=== PATIENT | male | born 1985 | race Caucasian/White ===

== ENCOUNTER 2020-01-09 19:09 | Emergency (ER) | payer OTHER, SELFPAY ==
[2020-01-09 19:23] VITALS: BP 167/92; PULSE 107; RESP 18; TEMP 36.7; O2SAT 97
[2020-01-09] MEDS: SODIUM CHLORIDE 0.9% IV 1,000 ML 999 ML IV CONT (19:40)
[2020-01-09] MEDS: ONDANSETRON INJ 4 MG/2 ML VIAL IV PUSH (19:42)
[2020-01-09 19:44] LABS: Hemoglobin 16.1 g/dL (14.0-18.0); Mean Corpuscular HGB Conc 33.5 g/dL (32.0-36.0); Mean Corpuscular Hemoglobin 31.5 pg (27.0-31.0); Mean Corpuscular Volume 93.9 fL (78.0-102.0); Mean Platelet Volume 9.7 fl (8.7-11.0); Platelet Count Result 294 K/mm3 (150-420); Red Blood Count 5.11 M/mm3 (4.70-6.10); Red Cell Distribution Width 12.9 % (11.6-14.4); White Blood Count 10.8 K/mm3 (4.8-10.8)
[2020-01-09 19:59] LABS: Alanine Aminotransferase 38 U/L (16-63); Alkaline Phosphatase 121 U/L (46-116); Anion Gap 10 mmol/L (8-16); Aspartate Amino Transferase 24 U/L (15-37); Bilirubin,Total 0.6 mg/dL (0.00-1.00); Blood Urea Nitrogen 13 mg/dL (7-18); Carbon Dioxide 28 mmol/L (21-32); Chloride 103 mmol/L (98-108); Estimated CRCL calculation 76 ml/min; Estimated Glomerular Filt Rate > 60; Glucose 107 mg/dL (70-99); Lipase 50 U/L (73-393); Osmolality Calculated 292 mOsm/kg (285-295); Potassium 3.6 mmol/L (3.5-5.1); Sodium 141 mmol/L (136-145)
--- NOTE | 2020-01-09 20:31 | ED.NAVMDI ---
HPI - Nausea/Vomiting/Diarrhea General Chief complaint: Nausea/Vomiting/Diarrhea Stated complaint: cant eat, throwing up, nausea Source: patient Mode of arrival: ambulatory History of Present Illness HPI Narrative: This is a 34-year-old male has a history of marijuana use, tobacco history and drinks approximately a pt of alcohol daily, presents with nausea and episodes of vomiting after he use marijuana earlier today. Currently there is no shortness of breath, no chest pain no fever or chills no diarrhea constipation no dysuria. MD elicited complaint: nausea and vomiting Pertinent past history: anorexia Onset (ago): hour(s) Description of vomiting: food contents and watery Associated nausea: Yes Associated abdominal pain: No Location of pain: none Related Data Allergies Allergy/AdvReac Type Severity Reaction Status Date / Time No Known Allergies Allergy Verified 01/09/20 19:31 Review of Systems Review of Systems: All systems reviewed & are unremarkable except as noted in HPI and below PMFSH Past Medical History Medical History Tobacco abuse Social History Social History Gender identity (if verbalized by the patient): Male Exam Const: General: no acute distress HENMT: Head: normal to inspection Eyes: Pupils: Equal, round and reactive pupils present Neck: Neck: normal visual inspection, no lymphadenopathy and no meningeal signs Chest: Chest palpation & inspection: normal inspection of the chest Resp: Effort & Inspection: normal respiratory effort Cardio: Rate: regular rate GI: GI Palp: Yes Soft to palpation Back/Spine/Pelvis: Back: no CVA tenderness Skin: General skin exam: normal color Rashes: no rashes Neuro: General: patient oriented x3 Extrem: General: normal to inspection Psych: Appearance: grossly normal Mental Status: mental status grossly normal Affect: normal affect Course Course Emergency Course: reassessment patient after IV Zofran and IV fluids patient states that he feels much better, and advised to to decrease is a marijuana use or to completely stop because of a relation to hyper emesis. Vital Signs Vital signs: Vital Signs Temperature 36.7 C 01/09/20 19:23 Pulse Rate 107 H 01/09/20 19:23 Respiratory Rate 18 01/09/20 19:23 Blood Pressure 167/92 H 01/09/20 19:23 Pulse Oximetry 97 01/09/20 19:23 Temperature 36.7 C 01/09/20 19:23 Pulse Rate 107 H 01/09/20 19:23 Respiratory Rate 18 01/09/20 19:23 Blood Pressure 167/92 H 01/09/20 19:23 Pulse Oximetry 97 01/09/20 19:23 MDM - Nausea/Vomiting/Diarrhea Lab Data Result diagrams: 01/09/20 19:39 01/09/20 19:39 Labs: Lab Results 01/09/20 01/09/20 Range/Units 19:39 19:39 WBC 10.8 (4.8-10.8) K/mm3 RBC 5.11 (4.70-6.10) M/mm3 Hgb 16.1 (14.0-18.0) g/dL Hct 48.0 (40.0-54.0) % MCV 93.9 (78.0-102.0) fL MCH 31.5 H (27.0-31.0) pg MCHC 33.5 (32.0-36.0) g/dL RDW 12.9 (11.6-14.4) % Plt Count 294 (150-420) K/mm3 MPV 9.7 (8.7-11.0) fl Sodium 141 (136-145) mmol/L Potassium 3.6 (3.5-5.1) mmol/L Chloride 103 (98-108) mmol/L Carbon Dioxide 28 (21-32) mmol/L Anion Gap 10 (8-16) mmol/L BUN 13 (7-18) mg/dL Creatinine 1.16 (0.70-1.30) mg/dL Estim Creat Clear Calc 76 ml/min Estimated GFR > 60 (59 - ) Glucose 107 H (70-99) mg/dL Calculated Osmolality 292 (285-295) mOsm/kg Calcium 9.0 (8.5-10.1) mg/dL Total Bilirubin 0.6 (0.00-1.00) mg/dL AST 24 (15-37) U/L ALT 38 (16-63) U/L Alkaline Phosphatase 121 H (46-116) U/L Total Protein 8.0 (6.4-8.2) g/dL Albumin 4.0 (3.4-5.0) g/dL Lipase 50 L (73-393) U/L Critical Care Time Critical Care Time Critical Care Time: No Discharge Plan Discharge Clinical Impression: Nausea & vomiting Qualifiers: Vomit
[2020-01-09 20:50] VITALS: BP 126/59
== END 2020-01-09 20:50 | disposition home or self-care (01) ==
PROVIDERS: Emergency Provider Emergency Medicine
DX: R11.2 Nausea with vomiting, unspecified (principal)
CPT/HCPCS: 36415; 80053; 83690; 85027; 96361; 96374; 99283; 99284; J2405; J7030

== ENCOUNTER 2020-01-13 07:58 | Emergency (ER) | payer OTHER, SELFPAY ==
[2020-01-13 08:11] VITALS: BP 139/81; PULSE 92; RESP 14; TEMP 36.6; O2SAT 98
--- NOTE | 2020-01-13 08:21 | ECG_ITS ---
Measurements Intervals [place] Rate: 82 P: 62 NV: 129 QRS: 97 QRSD: 92 T: 4 QT: 357 QTc: 418 Interpretive Statements SINUS RHYTHM RIGHT AXIS DEVIATION MINIMAL Q WAVES- INFERIOR LEADS BORDERLINE ST-T WAVE ABNORMALITY- INFERIOR LEADS BORDERLINE ECG Electronically Signed On 01-13-2020 8:51:35 CDT by Moisés Foley D.O.
[2020-01-13] MEDS: ONDANSETRON INJ 4 MG/2 ML VIAL IV PUSH (08:31)
[2020-01-13] MEDS: SODIUM CHLORIDE 0.9% IV 1,000 ML 999 ML IV CONT (08:32)
[2020-01-13 08:41] LABS: Hematocrit 43.7 % (40.0-54.0); Hemoglobin 14.8 g/dL (14.0-18.0); Mean Corpuscular HGB Conc 33.9 g/dL (32.0-36.0); Mean Corpuscular Hemoglobin 31.6 pg (27.0-31.0); Mean Corpuscular Volume 93.4 fL (78.0-102.0); Mean Platelet Volume 9.7 fl (8.7-11.0); Platelet Count Result 281 K/mm3 (150-420); Red Blood Count 4.68 M/mm3 (4.70-6.10); Red Cell Distribution Width 12.6 % (11.6-14.4); White Blood Count 8.5 K/mm3 (4.8-10.8)
[2020-01-13 09:02] LABS: Alanine Aminotransferase 37 U/L (16-63); Albumin Level 3.6 g/dL (3.4-5.0); Alkaline Phosphatase 98 U/L (46-116); Anion Gap 8 mmol/L (8-16); Aspartate Amino Transferase 23 U/L (15-37); Bilirubin,Total 0.3 mg/dL (0.00-1.00); Blood Urea Nitrogen 13 mg/dL (7-18); Calcium 8.4 mg/dL (8.5-10.1); Carbon Dioxide 28 mmol/L (21-32); Chloride 104 mmol/L (98-108); Estimated CRCL calculation 81 ml/min; Estimated Glomerular Filt Rate > 60; Glucose 112 mg/dL (70-99); Lipase 194 U/L (73-393); Osmolality Calculated 291 mOsm/kg (285-295); Potassium 3.7 mmol/L (3.5-5.1); Sodium 140 mmol/L (136-145)
[2020-01-13 09:03] LABS: Troponin I < 0.02 ng/mL (0.00-0.056)
--- NOTE | 2020-01-13 09:23 | ED.GENADULT ---
HPI - General Adult General Chief complaint: Dizziness Stated complaint: LIGHT HEADED VOMITTING Source: patient Mode of arrival: ambulatory Limitations: no limitations History of Present Illness HPI narrative: patient's presents some with some nausea, appears anxious, was seen approximately 2 to 3 days ago for nausea and vomiting secondary to cannabis use, episode recurred where he had some nausea with no episodes of vomiting currently, with some panic attack patient was anxious diaphoretic currently is more comfortable. Patient is afebrile with no chest pain no shortness of breath no abdominal pain with no diarrhea constipation. Onset (ago): hour(s) Related Data Allergies Allergy/AdvReac Type Severity Reaction Status Date / Time No Known Allergies Allergy Verified 01/09/20 19:31 Review of Systems Review of Systems: All systems reviewed & are unremarkable except as noted in HPI and below PMFSH Social History Social History Gender identity (if verbalized by the patient): Male Exam Const: General: no acute distress Orientation/consciousness: patient oriented x3 HENMT: Head: normal to inspection Eyes: Conjunctivae: conjunctivae normal Pupils: Equal, round and reactive pupils present EOM: EOMs intact bilaterally Neck: Neck: normal visual inspection Chest: Chest palpation & inspection: normal inspection of the chest Resp: Effort & Inspection: normal respiratory effort Auscultation: clear to auscultation bilaterally Cardio: Rate: regular rate Rhythm: regular rhythm GI: GI Palp: Yes Soft to palpation Percussion: Yes normal to percussion : Testes: Testes normal Back/Spine/Pelvis: Back: no CVA tenderness Skin: General skin exam: normal color Rashes: no rashes Neuro: General: patient oriented x3 Psych: Affect: Anxious affect present Course Course Emergency Course: Reassessment of patient, after receiving IV fluids, Zofran and Ativan is doing much better anxiety and panic level have greatly diminished and advised him to take medicine that we prescribed and follow-up and make a follow-up with a primary care physician. Vital Signs Vital signs: Vital Signs Temperature 36.6 C 01/13/20 08:11 Pulse Rate 92 01/13/20 08:11 Respiratory Rate 14 01/13/20 08:11 Blood Pressure 139/81 01/13/20 08:11 Pulse Oximetry 98 01/13/20 08:11 Temperature 36.6 C 01/13/20 08:11 Pulse Rate 92 01/13/20 08:11 Respiratory Rate 14 01/13/20 08:11 Blood Pressure 139/81 01/13/20 08:11 Pulse Oximetry 98 01/13/20 08:11 Medical Decision Making Vital Signs Vital Signs: Vital Signs Temperature 36.6 C 01/13/20 08:11 Pulse Rate 92 01/13/20 08:11 Respiratory Rate 14 01/13/20 08:11 Blood Pressure 139/81 01/13/20 08:11 Pulse Oximetry 98 01/13/20 08:11 Temperature 36.6 C 01/13/20 08:11 Pulse Rate 92 01/13/20 08:11 Respiratory Rate 14 01/13/20 08:11 Blood Pressure 139/81 01/13/20 08:11 Pulse Oximetry 98 01/13/20 08:11 Lab Data Result diagrams: 01/13/20 08:37 01/13/20 08:37 Labs: Lab Results 01/13/20 01/13/20 01/13/20 Range/Units 08:37 08:37 08:37 WBC 8.5 (4.8-10.8) K/mm3 RBC 4.68 L (4.70-6.10) M/mm3 Hgb 14.8 (14.0-18.0) g/dL Hct 43.7 (40.0-54.0) % MCV 93.4 (78.0-102.0) fL MCH 31.6 H (27.0-31.0) pg MCHC 33.9 (32.0-36.0) g/dL RDW 12.6 (11.6-14.4) % Plt Count 281 (150-420) K/mm3 MPV 9.7 (8.7-11.0) fl Sodium 140 (136-145) mmol/L Potassium 3.7 (3.5-5.1) mmol/L Chloride 104 (98-108) mmol/L Carbon Dioxide 28 (21-32) mmol/L Anion Gap 8 (8-16) mmol/L BUN 13 (7-18) mg/dL Creatinine 1.08 (0.70-1.30) mg/dL Estim Creat Clear Calc 81 ml/min Estimated GFR > 60 (59 - ) Glucose 112 H (70-99) mg/dL Calculated Osmolality 291 (285-295) mOsm/kg Calcium 8.4 L (8.5-10.1) m
[2020-01-13 09:33] VITALS: BP 133/74; PULSE 84; RESP 18; TEMP 36.9; O2SAT 100
== END 2020-01-13 09:37 | disposition home or self-care (01) ==
PROVIDERS: Emergency Provider Emergency Medicine
DX: F41.9 Anxiety disorder, unspecified (principal)
CPT/HCPCS: 36415; 80053; 83690; 84484; 85027; 93005; 96361; 96374; 96375; 99283; 99284; J2060; J2405; J7030

== ENCOUNTER 2020-02-17 12:52 | Outpatient (CLI) | payer OTHER, SELFPAY ==
[2020-02-17 13:53] LABS: HIV 1 P24 AG Negative (Negative); HIV 1/2 AB Negative (Negative)
[2020-02-20 19:13] LABS: Hepatitis A Antibody IgM Nonreactive; Hepatitis B Core Antibody Nonreactive (Nonreactive); Hepatitis B Surface Antigen Nonreactive (Nonreactive); Hepatitis C Virus Antibody Nonreactive (Nonreactive)
== END 2020-02-17 12:53 | disposition home or self-care (01) ==
PROVIDERS: PCP Family Medicine; Visit Provider Family Medicine
DX: F41.1 Generalized anxiety disorder (principal)
CPT/HCPCS: 36415; 80074; 86703

== ENCOUNTER 2020-03-18 18:43 | Emergency (ER) | payer OTHER, SELFPAY ==
[2020-03-18 19:00] VITALS: BP 164/80; PULSE 104; RESP 20; TEMP 36.7; O2SAT 99
[2020-03-18 19:27] LABS: Basophils Absolute Auto 0.07 K/mm3 (0.00-0.10); Basophils Percent Auto 0.6 % (0.0-1.0); Eosinophils Absolute Auto 0.21 K/mm3 (0.02-0.50); Eosinophils Percent Auto 1.8 % (1.0-6.0); Hemoglobin 15.2 g/dL (14.0-18.0); Immature Granulocyte Absolute 0.04 K/mm3 (0.00-0.00); Immature Granulocyte Percent A 0.3 % (0.0-0.0); Lymphocytes Absolute Auto 2.87 K/mm3 (1.10-4.50); Lymphocytes Percent Auto 24.7 % (18.0-42.0); Mean Corpuscular Volume 93.7 fL (78.0-102.0); Mean Platelet Volume 10.1 fl (8.7-11.0); Monocytes Absolute Auto 0.95 K/mm3 (0.10-0.90); Monocytes Percent Auto 8.2 % (2.0-11.0); Neutrophils Absolute Auto 7.5 K/mm3 (1.7-7.2); Neutrophils Percent Auto 64.4 % (50.0-70.0); Platelet Count Result 280 K/mm3 (150-420); Red Blood Count 4.91 M/mm3 (4.70-6.10); Red Cell Distribution Width 12.4 % (11.6-14.4); White Blood Count 11.6 K/mm3 (4.8-10.8)
--- NOTE | 2020-03-18 19:27 | ED.GENADULT ---
HPI - General Adult General Chief complaint: Abdominal Pain Stated complaint: R side pain Source: patient Mode of arrival: ambulatory History of Present Illness HPI narrative: Naresh is a 34M with a PMH of anxiety, etoh abuse and tobacco abuse that presented to the ED with abdominal pain. He reports a constant cramping deep RLQ pain. It started after he was lying down a few days ago. It became progressively worse but stopped after he ate lunch. It later returned. It became concerning so he came to the ED. No diarrhea, constipation, nausea or vomiting reported. No CP or SOB. Related Data Allergies Allergy/AdvReac Type Severity Reaction Status Date / Time No Known Allergies Allergy Verified 03/18/20 19:10 Review of Systems Constitutional: Constitutional: Reports no additional constitutional complaints, Denies chills, Denies fever(s) and Denies weakness Eyes: Eyes: Reports no additional eye complaints ENT: Reports system reviewed and no additional complaints, except as documented Cardiovascular: Cardiovascular: Reports no additional cardiovascular complaints Respiratory: Respiratory: Reports no additional respiratory complaints Gastrointestinal: Gastrointestinal: Reports as per HPI Genitourinary: Genitourinary: Reports no additional male genitourinary complaints Musculoskeletal: Musculoskeletal: Reports no additional musculoskeletal complaints Integumentary/Breasts: Skin/Breast: Reports system reviewed and no additional complaints, except as docu Neurologic: Reports system reviewed and no additional complaints, except as documented Psychiatric: Psychiatric: Reports no additional psychiatric complaints Endocrine: Endocrine: Reports no additional endocrine complaints Hematologic/Lymphatic: Hematologic/Lymphatic: Reports no additional hematologic/lymphatic complaints Allergic/Immunologic: Allergic/Immunologic: Reports no additional allergic/immunologic complaints [facility] Past Medical History Medical History (Updated 03/18/20 @ 19:59 by Poli Ureña DO) Sebaceous cyst Tobacco abuse Surgical History Surgical History No history of previous surgery Social History Social History Smoking packs per day: 1 Smoking cigarettes per day: 20.0 Years smoked: 20 Smoking pack-years: 20.00 Smoking status: Current every day smoker Tobacco type: cigarettes Gender identity (if verbalized by the patient): Male Exam Const: General: no acute distress and alert Orientation/consciousness: patient oriented x3 Limitations: No altered mental status HENMT: Head: normal to inspection Eyes: Conjunctivae: conjunctivae normal Pupils: Equal, round and reactive pupils present Neck: Neck: normal visual inspection Chest: Chest palpation & inspection: normal inspection of the chest Resp: Effort & Inspection: normal respiratory effort Cardio: Rate: regular rate GI: Inspection: non-distended GI Palp: Yes Soft to palpation, No Tenderness to palpation present (GI), No Guarding due to palpation present (GI) and No Rigid due to palpation Other: Negative elliott sign, negative obturator sign, negative psoas sign, no guarding or rebound tenderness Skin: General skin exam: normal color Rashes: no rashes Neuro: General: patient oriented x3 and moves all extremities Extrem: General: normal to inspection Psych: Mental Status: mental status grossly normal Course Course Emergency Course: Naresh was evaluated. Labs were ordered and he was given bentyl for pain. Labs were largely unremarkable making cholecysitis, appendicitis, pancreatitis and obstruction very unlikely, especially with a normal exam and regular BM movements. He was discharged with a script for bentyl. Vital Signs Vital signs: Vital Signs Temperature 98.1 F 03/18/20 19:00 Pulse Rate 104 H 03/18/20 19:00 Respiratory Rate 20 1
[2020-03-18] MEDS: DICYCLOMINE HCL 10 MG CAPSULE 20 MG PO (19:30)
[2020-03-18 19:42] LABS: Alanine Aminotransferase 32 U/L (16-63); Albumin Level 4.1 g/dL (3.4-5.0); Alkaline Phosphatase 93 U/L (46-116); Anion Gap 7 mmol/L (8-16); Aspartate Amino Transferase 19 U/L (15-37); Bilirubin,Total 0.3 mg/dL (0.00-1.00); Blood Urea Nitrogen 16 mg/dL (7-18); Calcium 8.6 mg/dL (8.5-10.1); Carbon Dioxide 28 mmol/L (21-32); Chloride 103 mmol/L (98-108); Estimated CRCL calculation 89 ml/min; Estimated Glomerular Filt Rate > 60; Glucose 97 mg/dL (70-99); Lipase 118 U/L (73-393); Osmolality Calculated 287 mOsm/kg (285-295); Sodium 138 mmol/L (136-145)
[2020-03-18 19:45] LABS: CRP 0.7 mg/dL (0.0-0.9)
[2020-03-18 19:47] LABS: Lactic Acid Reflex 0.8 mmol/L (0.4-2.0)
[2020-03-18 20:04] VITALS: BP 122/72; PULSE 98; RESP 16; O2SAT 98
== END 2020-03-18 20:06 | disposition home or self-care (01) ==
PROVIDERS: Emergency Provider Family Medicine; PCP Family Medicine
DX: R10.9 Unspecified abdominal pain (principal)
CPT/HCPCS: 36415; 80053; 83605; 83690; 85025; 86140; 99283; A9270

== ENCOUNTER 2020-03-19 10:49 | Emergency (ER) | payer OTHER, SELFPAY ==
[2020-03-19 10:54] VITALS: BP 136/69; PULSE 100; RESP 18; TEMP 37.3; O2SAT 99
--- NOTE | 2020-03-19 11:14 | PC.NURSE ---
1055 prior to triage Naresh requests order for an ultrasound/scan of his abdomen , stating appendix or gallbladder may be bad . reports he went to er last night with right side abdominal pain and they did not do these tests. informed our provider would see and evaluate him, but could not order ultrasounds or cat scans as he requests. reports he did not want to be seen here and would go to another er. left at this time. observed talkative in no distress.
== END 2020-03-19 11:14 | disposition left against medical advice (07) ==
LOC: EXPBETH 10:52
PROVIDERS: Emergency Provider Registered Nurse; PCP Family Medicine
DX: Z53.21 Procedure and treatment not carried out due to patient leaving prior to being seen by health care provider (principal)
CPT/HCPCS: 99199

== ENCOUNTER 2021-03-25 12:40 | Emergency (ER) | payer OTHER, SELFPAY ==
[2021-03-25 12:48] VITALS: BP 159/86; PULSE 89; RESP 16; TEMP 36.6; O2SAT 97
--- NOTE | 2021-03-25 12:51 | ED.DENTAL ---
HPI - Dental/Oral General Chief complaint: Dental/Oral Stated complaint: Tooth pain Source: patient Mode of arrival: ambulatory Limitations: no limitations History of Present Illness HPI Narrative: this is a 35-year-old gentleman that presents with dental pain in the right 7. To with dental decay tenderness with surrounding gum inflammation no fever chills rates his pain about 3/10 with no nausea vomiting no shortness of breath. MD Complaint: tooth pain Teeth map: 1. dental pain with some surrounding gum inflammation Onset (ago): day(s) Duration: constant Severity: mild Severity scale (1-10): 3 Relieving factors: NSAIDs Related Data Allergies Allergy/AdvReac Type Severity Reaction Status Date / Time No Known Allergies Allergy Verified 03/23/20 10:19 Review of Systems Review of Systems: All systems reviewed & are unremarkable except as noted in HPI and below PMFSH Past Medical History Medical History (Updated 03/25/21 @ 12:53 by Yakov Macias MD) Sebaceous cyst Tobacco abuse Surgical History Surgical History No history of previous surgery Social History Social History Smoking packs per day: 1 Smoking cigarettes per day: 20.0 Years smoked: 20 Smoking pack-years: 20.00 Smoking status: Current every day smoker Tobacco type: cigarettes Gender identity (if verbalized by the patient): Male Exam Const: General: no acute distress Orientation/consciousness: patient oriented x3 HENMT: Head: normal to inspection Other: Gum inflammation right upper incisor Eyes: Conjunctivae: conjunctivae normal Pupils: Equal, round and reactive pupils present EOM: EOMs intact bilaterally Neck: Neck: normal visual inspection, no lymphadenopathy and no meningeal signs Resp: Effort & Inspection: normal respiratory effort Auscultation: clear to auscultation bilaterally Cardio: Rate: regular rate Rhythm: regular rhythm Skin: General skin exam: normal color Rashes: no rashes Neuro: General: patient oriented x3 and moves all extremities Extrem: General: normal to inspection Psych: Mental Status: mental status grossly normal Course Course Emergency Course: patient with dental pain and abscess will send antibiotic to patient's pharmacy and advised follow-up with his dentist. Vital Signs Vital signs: Vital Signs Temperature 36.6 C 03/25/21 12:48 Pulse Rate 89 03/25/21 12:48 Respiratory Rate 16 03/25/21 12:48 Blood Pressure 159/86 H 03/25/21 12:48 Pulse Oximetry 97 03/25/21 12:48 Temperature 36.6 C 03/25/21 12:48 Pulse Rate 89 03/25/21 12:48 Respiratory Rate 16 03/25/21 12:48 Blood Pressure 159/86 H 03/25/21 12:48 Pulse Oximetry 97 03/25/21 12:48 Critical Care Time Critical Care Time Critical Care Time: No Discharge Plan Discharge Clinical Impression: Dental abscess Patient Disposition: Home, Self-Care Condition: Stable Instructions: Antibiotic Form, Dental Abscess (ED) Additional Instructions: Take medicine as prescribed and follow-up with dentist. Prescriptions: New amoxicillin 500 mg tablet 500 mg PO TID Qty: 30 RF: 0 No Action dicyclomine 10 mg capsule 10 mg PO TID Qty: 20 RF: 0 ondansetron HCl [Zofran] 4 mg tablet 4 mg PO Q6H PRN (Reason: nausea and vomiting) Qty: 10 RF: 0 bupropion HCl [Wellbutrin SR] 150 mg tablet sustained-release 12 hr 150 mg PO BID Qty: 60 RF: 0 alprazolam [Xanax] 0.5 mg tablet 0.5 mg PO BID PRN (Reason: anxiety) Qty: 10 RF: 0 Follow-up/Referrals: Poli Ureña DO [Primary Care Provider] - Stand Alone Forms: Work/School Release IP Time of Disposition: 12:54
== END 2021-03-25 13:01 | disposition home or self-care (01) ==
PROVIDERS: Emergency Provider Emergency Medicine; PCP Family Medicine
DX: K04.7 Periapical abscess without sinus (principal)
CPT/HCPCS: 99283